=== PATIENT | female | born 2000 | race Caucasian/White ===

== ENCOUNTER 2024-08-02 01:02 | Emergency (ER) | payer OTHER ==
[~2024-08-02] VITALS: Ht 154.9 cm; Wt 72.0 kg
[~2024-08-02 01:02] MED LIST: IBUP-2030 MT
[2024-08-02 01:13] VITALS: BP 112/86; TEMP 98; O2SAT 99
[2024-08-02 01:16] VITALS: PULSE 125; O2SAT 97
[2024-08-02] MEDS ORDERED: CEPH500C2 MT (01:51)
[2024-08-02 02:00] VITALS: RESP 16
[2024-08-02] MEDS: IBUPROFEN 600MG TABLET PO ONE (02:00)
== END 2024-08-02 02:00 | disposition home or self-care (01) ==
LOC: ER 01:02
DX: L03.312 Cellulitis of back [any part except buttock and flank] (principal); D64.9 Anemia, unspecified; F19.90 Other psychoactive substance use, unspecified, uncomplicated
CPT/HCPCS: 99283